=== PATIENT | female | born 1985 | race Hispanic/Latino ===

== ENCOUNTER 2020-07-29 23:13 | Emergency (ER) | payer SELFPAY ==
[~2020-07-29] VITALS: Ht 152.4 cm; Wt 77.0 kg
[2020-07-29] MEDS ORDERED: VOLTAREN75 MG PO (23:29)
[2020-07-29] MEDS ORDERED: CLARITHROMYC500 M2 PO (23:29)
[2020-07-29] MEDS ORDERED: TRAMADOL HYDROC50 MG PO (23:29)
[2020-07-29 23:45] VITALS: BP 140/65
== END 2020-07-29 23:45 | disposition home or self-care (01) | DRG 158 ==
LOC: ED 23:13
DX: K02.9 Dental caries, unspecified (principal); M84.68XA Pathological fracture in other disease, other site, initial encounter for fracture